=== PATIENT | male | born 1935 | race Caucasian/White ===

== ENCOUNTER 2016-10-08 12:03 | Emergency (ER) | payer OTHER, BC ==
[~2016-10-08] VITALS: Ht 175.3 cm; Wt 93.8 kg
[2016-10-08 12:10] VITALS: TEMP 36.6; Ht 175.3 cm; Wt 93.8 kg
--- NOTE | 2016-10-08 13:45 | EMERGENCY ROOM VISIT NOTE ---
History Report prepared by Blair: Gordon Guallpa Under the Supervision of: Dr. Rebecca Lopez D.O. First contact with patient: 12:38 Chief Complaint: CARDIAC ASSESSMENT Stated Complaint: CHEST PAIN, DIZZINESS History of Present Illness The patient is an 81 year old male who presents to the Emergency Room with complaints of persistent chest pain for the past several days. The patient attributes his pain to lifting boxes of magazines because he does not have any pain prior to this. The pain is worse when he moves his arms worse on the left than the right. The patient also has intermittent chronic left back pain. The patient notes that he has been feeling "woozy" today, which can be most related to lightheadedness. He denies dizziness or room-spinning. States he did drink coffee this morning, did not drink much water, did have a small breakfast. Denies any recent change in medications, denies trauma, denies recent travel or recent illness. The patient denies recent cough or colds, fevers, chills, dizziness, weakness, numbness, or leg swelling. His vision is more blurry than baseline when he is not wearing his glasses. He has ringing in his ears at baseline. The patient was able to eat and drink normally today. The patient has a history of CAD and angina. He notes that his pain is not similar to the angina. He has had angioplasty but not stents. He never had a heart attack. He follows up with Cardiology but has not had an echocardiogram or stress test in a while. He recently had an endoscopy and was diagnosed with Argueta's esophagus. He is on Nexium. The patent does not usually experience allergies at this time of year. He has a history of high cholesterol and denies history of hypertension or diabetes. Source of History: patient, family Onset: several days ago Position: chest Timing: other (persistent) Modifying Factors (Worsening): movement (of arm) Associated Symptoms: + back pain, + rash, No chills, No cough, No fevers, No numbness, No weakness Note: Positive lightheadedness. Review of Systems See HPI for pertinent positives & negatives. A total of 10 systems reviewed and were otherwise negative. Past Medical & Surgical Medical Problems: (1) Barretts esophagus (2) CAD (coronary artery disease) (3) HLD (hyperlipidemia) Surgical Problems: (1) H/O angioplasty Family History Patient reports no known family medical history. Social History Smoking Status: Never Smoker Occupation Status: employed Current/Historical Medications Scheduled Alpha-Lipoic Acid (Thioctic Ac (Alpha Lipoic Acid), 200 MG PO BID Amlodipine (Norvasc), 1 TAB PO QAM Coenzyme Q10 (Ubidecarenone) (Co Q10), 1 CAP PO DAILY Dutasteride (Avodart), 1 CAP PO Q3D Esomeprazole Magnesium (Nexium), 1 CAP PO DAILY Ezetimibe (Zetia), 1 TAB PO QAM Fluticasone Propionate (Nasal) (Flonase Allergy Relief), 2 SPRAYS TALHA D Glucosamine Sulfate (Glucosamine), 1 TAB PO BID Lisinopril (Zestril), 1 TAB PO BID Multivitamin (Multivitamin), 1 TAB PO BID Niacin W/ Inositol (No Flush Niacin), 1 CAP PO QPM Probiotic Product (Probiotic), 1 CAP PO BID Red Yeast Rice Extract (Red Yeast Rice), 1 CAP PO QPM Tadalafil (Cialis), 0.5 TAB PO QPM Terazosin (Hytrin), 1 CAP PO QPM Valacyclovir Hcl (Valtrex), 1 GM PO TID [Acetacarnide], 1 TAB PO BID [Tumeric], 1 CAP PO BID Scheduled PRN Celecoxib (CeleBREX), 1 CAP PO DAILY PRN for ARTHRITIS Allergies Coded Allergies: No Known Allergies (Unverified , 10/08/16) Physical Exam Vital Signs Date Time Temp Pulse Resp B/P Pulse Ox O2 Delivery O2 Flow Rate FiO2 10/08/16 15:43 72 18 166/79 97 10/08/16 15:33 166/79 10/08/16 15:00 55 21 96 10/08/16 14:46 160/72 10/08/16 14:08 55 19 144/89 94 10/08/16 13:03 67 22 160/84 97 10/08/16 12:59 64 10/08/16 12:35 179/83 10/08/16 12:10 36.6 70 20 173/79 96 Room Air Physical Exam GENERAL: alert, well appearing, well nourished, no distress, non-toxic EYE EXAM: normal conjunctiva, PERRL and EOM's grossly intact OROPHARYNX: no exudate, no erythema, lips, buccal mucosa, and tongue normal and mucous membranes are moist NECK: supple, no nuchal rigidity, no adenopathy, non-tender LUNGS: Clear to auscultation. Normal chest wall mechanics HEART: no murmurs, S1 normal and S2 normal ABDOMEN: abdomen soft, non-tender, normo-active bowel sounds, no masses, no rebound or guarding. BACK: Back is symmetrical on inspection and there is no deformity, no midline tenderness, no CVA tenderness. Focal area of pain on the left medial scapula. SKIN: Small patch of maculopapular vesicular appearing lesions to the left lateral chest and left flank, most consistent with herpes zoster. UPPER EXTREMITIES: upper extremities are grossly normal in range of motion and strength LOWER EXTREMITIES: No pitting edema, normal range of motion and strength NEURO EXAM: Normal sensorium, cranial nerves II-XII intact, normal speech, no weakness of arms, no weakness of legs. No drift. Finger to nose intact. Gross sensation intact. Negative HINTS exam. Medical Decision & Procedures ER Provider Diagnostic Interpretation: Xray results per the radiologist and my interpretation. Other results have been interpreted by the radiologist and reviewed by me. CHEST ONE VIEW PORTABLE CLINICAL HISTORY: chest pain dyspnea COMPARISON STUDY: No previous studies for comparison. FINDINGS: The bones soft tissues and hemidiaphragms are normal. The cardiomediastinal silhouette is normal. The lungs are clear. The pulmonary vasculature is normal. IMPRESSION: Negative chest. Electronically signed by: Vipin Peterson M.D. 10/08/2016 2:10 PM Dictated Date/Time: 10/08/2016 2:[address] CT DOSE: 537.48 mGy.cm HISTORY: Mental status change dizziness TECHNIQUE: Multiaxial CT images of the head were performed without the use of intravenous contrast. Comparison: None. Findings: The paranasal sinuses and mastoid air cells are clear. The calvarium and skull base are intact. The ventricles and sulci are within normal limits. There is no mass, hematoma, midline shift, or acute infarct. Age-related atrophy and chronic small vessel change Impression: No acute intracranial abnormality. Age-related change. Electronically signed by: Vipin Peterson M.D. 10/08/2016 2:42 PM Dictated Date/Time: 10/08/2016 2:40 PM Laboratory Results 10/08/16 14:15 Red Blood Count 4.62, Mean Corpuscular Volume 88.1, Mean Corpuscular Hemoglobin 30.1, Mean Corpuscular Hemoglobin Concent 34.2, Mean Platelet Volume 9.2, Neutrophils (%) (Auto) 76.3, Lymphocytes (%) (Auto) 13.9, Monocytes (%) (Auto) 8.2, Eosinophils (%) (Auto) 1.2, Basophils (%) (Auto) 0.4, Neutrophils # (Auto) 3.84, Lymphocytes # (Auto) 0.70, Monocytes # (Auto) 0.41, Eosinophils # (Auto) 0.06, Basophils # (Auto) 0.02 10/08/16 14:15 Test 10/08/16 14:00 10/08/16 14:15 Urine Color DK YELLOW Urine Appearance CLEAR (CLEAR) Urine pH 5.0 (4.5-7.5) Urine Specific [place] 1.018 (1.000-1.030) Urine Protein NEG (NEG) Urine Glucose (UA) NEG (NEG) Urine Ketones TRACE (NEG) Urine Occult Blood NEG (NEG) Urine Nitrite NEG (NEG) Urine Bilirubin NEG (NEG) Urine Urobilinogen NEG (NEG) Urine Leukocyte Esterase NEG (NEG) White Blood Count 5.03 K/uL (4.8-10.8) Red Blood Count 4.62 M/uL (4.7-6.1) Hemoglobin 13.9 g/dL (14.0-18.0) Hematocrit 40.7 % (42-52) Mean Corpuscular Volume 88.1 fL (80-100) Mean Corpuscular Hemoglobin 30.1 pg (25-34) Mean Corpuscular Hemoglobin Concent 34.2 g/dl (32-36) Platelet Count 134 K/uL (130-400) Mean Platelet Volume 9.2 fL (7.4-10.4) Neutrophils (%) (Auto) 76.3 % Lymphocytes (%) (Auto) 13.9 % Monocytes (%) (Auto) 8.2 % Eosinophils (%) (Auto) 1.2 % Basophils (%) (Auto) 0.4 % Neutrophils # (Auto) 3.84 K/uL (1.4-6.5) Lymphocytes # (Auto) 0.70 K/uL (1.2-3.4) Monocytes # (Auto) 0.41 K/uL (0.11-0.59) Eosinophils # (Auto) 0.06 K/uL (0-0.5) Basophils # (Auto) 0.02 K/uL (0-0.2) RDW Standard Deviation 43.8 fL (36.4-46.3) RDW Coefficient of Variation 13.5 % (11.5-14.5) Immature Granulocyte % (Auto) 0.0 % Immature Granulocyte # (Auto) 0.00 K/uL (0.00-0.02) Prothrombin Time 10.6 SECONDS (9.0-12.0) Prothromb Time International Ratio 1.0 (0.9-1.1) Anion Gap 11.0 mmol/L (3-11) Est Creatinine Clear Calc Drug Dose 53.7 ml/min Estimated GFR () 64.9 Estimated GFR (Non- 56.0 BUN/Creatinine Ratio 23.5 (10-20) Calcium Level 8.8 mg/dl (8.5-10.1) Magnesium Level 2.2 mg/dl (1.8-2.4) Total Bilirubin 0.8 mg/dl (0.2-1) Aspartate Amino Transf (AST/SGOT) 34 U/L (15-37) Alanine Aminotransferase (ALT/SGPT) 40 U/L (12-78) Alkaline Phosphatase 73 U/L (45-117) Troponin I < 0.015 ng/ml (0-0.045) Pro-B-Type Natriuretic Peptide 201 pg/ml (0-1800) Total Protein 7.0 gm/dl (6.4-8.2) Albumin 4.4 gm/dl (3.4-5.0) Globulin 2.6 gm/dl (2.5-4.0) Albumin/Globulin Ratio 1.7 (0.9-2) Laboratory results per my review. Medications Administered Medications (Trade) Dose Ordered Sig/Jane Route Start Time Stop Time Status Last Admin Dose Admin Sodium Chloride (Nss 1000ml) 1,000 ml @ 200 mls/hr Q5H STAT IV 10/08/16 13:46 10/08/16 17:39 DC 10/08/16 14:12 200 MLS/HR Valacyclovir HCl (Valtrex Tab) 1,000 mg NOW ONCE PO 10/08/16 15:30 10/08/16 15:31 DC 10/08/16 15:30 1,000 MG ECG Indication: chest pain Rate (beats per minute): 69 Rhythm: normal sinus Findings: no acute ischemic change, no ectopy, other (normal axis, normal intervals) ED Course 1321: The patient was evaluated in room C2b. A complete history and physical exam was performed. 1346: NSS 1000 ml @ 200 mls/hr. 1514: The patient feels better and is no longer "woozy." He would like to be discharged. 1530: Valtrex 1000 mg PO. Medical Decision Differential diagnoses includes but is not limited to acute coronary syndrome, myocardial infarction, pericarditis, pulmonary embolus, aortic dissection, pneumonia, pneumothorax, musculoskeletal, shingles, esophageal. Patient's labs suggest possible dehydration which is consistent with patient's by mouth intake today. Following half a liter of IV fluids, patient felt markedly improved. Patient and related to the bathroom with a steady gait under his own power several times while he was being observed in the emergency room. No ectopy or dysrhythmias noted on telemetry during observation. That' ll signs stable throughout. Rash on the patient's left lateral chest wall consistent with herpes zoster, and likely the reason for his worsening left- sided pain. Discussed while pain may have started as a musculoskeletal strain given recent activity, likely persisted due to outbreak of shingles. Given persistence of pain and negative troponin, doubt ACS. Patient presented initially today due to sense of "wooziness" this morning, not due to his chest pain. Patient denied any other symptoms at bedside. Doubt dissection, tamponade, effusion, PE, occult bacteremia/sepsis, no other trauma by history. Patient improved with IV fluids, tolerating by mouth bedside. Discussed with patient and son-in-law who is an anesthesiologist at bedside, need for close follow-up with family doctor once they return to [place], need for follow-up with cardiology as a precaution, patient given copies of labs and imaging reports, discussed symptoms to watch and return to the ER immediately for, he verbalized understanding was agreeable with plan. Impression Primary Impression: Light-headed feeling Additional Impressions: Dehydration Zoster Chest pain Scribe Attestation The scribe's documentation has been prepared under my direction and personally reviewed by me in its entirety. I confirm that the note above accurately reflects all work, treatment, procedures, and medical decision making performed by me. Departure Information Dispostion Home / Self-Care Prescriptions Valacyclovir Hcl (VALTREX) 1 Gm Tab 1 GM PO TID, #21 TAB Prov: Rebecca LopezJuju, DO 10/08/16 Referrals No Doctor, Assigned (PCP) Forms IMPORTANT VISIT INFORMATION Patient Instructions My [facility] Additional Instructions Please continue regular medications as prescribed. Please follow-up with your family doctor and with your hearing and speech assistant as a precaution. Please take the shingles medication as prescribed. You may use [id number] medications for pain as you would normally. Please try to drink more water throughout the day to stay well-hydrated. If you have any worsening chest pain, recurrent sense of lightheadedness or dizziness, develop worsening blurred vision, trouble breathing, fevers, vomiting, back pain, numbness/tingling, or you have any other new concerns, please return to the emergency room. Problem Qualifiers Additional Impressions: Zoster Herpes zoster complications: without complications Qualified Codes: B02.9 - Zoster without complications Chest pain Chest pain type: unspecified Qualified Codes: R07.9 - Chest pain, unspecified
[2016-10-08] MEDS ORDERED: SODIUM CHLORIDE 0.9% 1000ML 1,000 ML IV STA (13:46)
--- NOTE | 2016-10-08 14:11 | DIAGNOSTIC IMAGING REPORT ---
CHEST ONE VIEW PORTABLE CLINICAL HISTORY: chest pain dyspnea COMPARISON STUDY: No previous studies for comparison. FINDINGS: The bones soft tissues and hemidiaphragms are normal. The cardiomediastinal silhouette is normal. The lungs are clear. The pulmonary vasculature is normal. IMPRESSION: Negative chest. Electronically signed by: Vipin Peterson M.D. 10/08/2016 2:10 PM Dictated Date/Time: 10/08/2016 2:10 PM
[2016-10-08 14:30] LABS: BASO % 0.4 %; BASO ABS # 0.02 K/uL (0-0.2); COMPLETE YES; EOS % 1.2 %; HEMATOCRIT 40.7 % (42-52); LYMPH % 13.9 %; MEAN CELL VOLUME 88.1 fL (80-100); MEAN CORPUSCULAR HEMOGLOBIN 30.1 pg (25-34); MEAN CORPUSCULAR HGB CONC 34.2 g/dl (32-36); MEAN PLATELET VOLUME 9.2 fL (7.4-10.4); MONO % 8.2 %; NEUT % 76.3 %; PLATELET COUNT 134 K/uL (130-400); RED BLOOD COUNT 4.62 M/uL (4.7-6.1); WHITE BLOOD COUNT 5.03 K/uL (4.8-10.8)
[2016-10-08] MEDS ORDERED: LISI-461 PO (14:34)
[2016-10-08] MEDS ORDERED: ALPH200C2 PO (14:34)
[2016-10-08] MEDS ORDERED: MULT-506 PO (14:34)
[2016-10-08] MEDS ORDERED: TUMERIC PO (14:34)
[2016-10-08] MEDS ORDERED: [UNRECOGNIZED DRUG - OTHER] PO (14:34)
[2016-10-08] MEDS ORDERED: RED1CAP5 PO (14:34)
[2016-10-08] MEDS ORDERED: NIAC400C PO (14:34)
[2016-10-08] MEDS ORDERED: COEN1CAP PO (14:34)
[2016-10-08] MEDS ORDERED: GLUC10007 PO (14:34)
[2016-10-08] MEDS ORDERED: MISCCAP80 PO (14:34)
[2016-10-08] MEDS ORDERED: TERA5CAP PO (14:40)
[2016-10-08] MEDS ORDERED: FLUT0.15 NAE (14:40)
[2016-10-08] MEDS ORDERED: DUTA0.5C PO (14:40)
[2016-10-08] MEDS ORDERED: AMLO-110 PO (14:40)
[2016-10-08] MEDS ORDERED: TADA10TA PO (14:40)
--- NOTE | 2016-10-08 14:43 | DIAGNOSTIC IMAGING REPORT ---
HEAD CT NONCONTRAST CT DOSE: 537.48 mGy.cm HISTORY: Mental status change dizziness TECHNIQUE: Multiaxial CT images of the head were performed without the use of intravenous contrast. Comparison: None. Findings: The paranasal sinuses and mastoid air cells are clear. The calvarium and skull base are intact. The ventricles and sulci are within normal limits. There is no mass, hematoma, midline shift, or acute infarct. Age-related atrophy and chronic small vessel change Impression: No acute intracranial abnormality. Age-related change. Electronically signed by: Vipin Peterson M.D. 10/08/2016 2:42 PM Dictated Date/Time: 10/08/2016 2:40 PM
[2016-10-08] MEDS ORDERED: CLB/200 PO (14:45)
[2016-10-08 14:46] LABS: BLOOD UREA NITROGEN 28 mg/dl (7-18); BUN/CREATININE RATIO 23.5 (10-20); CALCIUM 8.8 mg/dl (8.5-10.1); CARBON DIOXIDE 25 mmol/L (21-32); GLUCOSE 101 mg/dl (70-99); MAGNESIUM 2.2 mg/dl (1.8-2.4); PROTHROMBIN TIME (PATIENT) 10.6 SECONDS (9.0-12.0)
[2016-10-08 14:48] LABS: ALB/GLOB RATIO 1.7 (0.9-2); AST/SGOT 34 U/L (15-37); CHLORIDE 107 mmol/L (98-107); POTASSIUM 4.1 mmol/L (3.5-5.1); SODIUM 143 mmol/L (136-145)
[2016-10-08] MEDS ORDERED: EZET10TA63 PO (14:48)
[2016-10-08] MEDS ORDERED: NXM/40 PO (14:48)
[2016-10-08 14:51] LABS: ALKALINE PHOSPHATASE 73 U/L (45-117); ALT/SGPT 40 U/L (12-78)
[2016-10-08 14:54] LABS: URINE APPEARANCE CLEAR (CLEAR); URINE BILIRUBIN NEG (NEG); URINE COLOR DK YELLOW; URINE NITRITE NEG (NEG); URINE SPECIFIC GRAVITY 1.018 (1.000-1.030); UROBILINOGEN NEG (NEG); ZZUR CULT IF INDIC CLEAN CATCH NO
[2016-10-08 15:00] LABS: MANUAL MICROSCOPIC REQUIRED? NO; REVIEW REQ? NO
[2016-10-08] MEDS ORDERED: VALA1TAB31 PO (15:29)
[2016-10-08 15:43] VITALS: BP 166/79; PULSE 72; O2SAT 97
== END 2016-10-08 15:45 | disposition home or self-care (01) ==
LOC: C.EDB 12:04 → C.EDC 15:45
DX: R42 Dizziness and giddiness (principal); E86.0 Dehydration; B02.9 Zoster without complications; R07.9 Chest pain, unspecified; M54.9 Dorsalgia, unspecified; K22.70 Barrett's esophagus without dysplasia; I25.10 Atherosclerotic heart disease of native coronary artery without angina pectoris; E78.5 Hyperlipidemia, unspecified; Z98.61 Coronary angioplasty status; X50.0XXA Overexertion from strenuous movement or load, initial encounter; Z79.899 Other long term (current) drug therapy